=== PATIENT | male | born 1990 | race Hispanic/Latino ===

== ENCOUNTER 2019-02-10 18:21 | Emergency (ER) | payer OTHER ==
[2019-02-10] MEDS ORDERED: IBUPROFEN 600 MG TABLET ONE (18:56)
[2019-02-10 19:21] LABS: RAPID GROUP A STREP NEGATIVE (NEGATIVE)
== END 2019-02-10 19:57 | disposition home or self-care (01) ==
LOC: EDH 18:21
DX: K04.7 Periapical abscess without sinus (principal)
CPT/HCPCS: 87804; 87880